=== PATIENT | male | born 1990 | race Caucasian/White ===

== ENCOUNTER 2017-05-01 19:55 | Emergency (ER) | payer OTHER ==
[2017-05-01 20:04] VITALS: TEMP 97.5; O2SAT 98
--- NOTE | 2017-05-01 21:13 | EDPHY ---
H & P Stated Complaint: right calf skin lac HPI/ROS: Chief complaint: Right lower leg laceration History of present illness: This is a 26-year-old male who presents to the emergency department for a right lower leg laceration. Patient states he struck his leg against a metal pipe just prior to arrival. There has been pain and bleeding. It hurts to walk. He denies associated signs or symptoms including no abnormal coolness or paresthesias in the leg. He can still move the leg well. No other injuries are reported. His tetanus is up-to-date. - Personal History Current Tetanus/Diphtheria Vaccine: Unsure Current Tetanus Diphtheria and Acellular Pertussis (TDAP): Unsure - Medical/Surgical History Hx Asthma: No Hx Chronic Respiratory Disease: No Hx Diabetes: No Hx Cardiac Disease: No Hx Renal Disease: No Hx Cirrhosis: No Hx Alcoholism: No Hx HIV/AIDS: No Hx Splenectomy or Spleen Trauma: No Other PMH: ADHD - Social History Smoking Status: Never smoked - Physical Exam Exam: General: Alert, nontoxic Skin: 5 cm laceration to the medial aspect of the distal right lower leg. Exploration does reveal small amount of muscle belly exposed. No foreign bodies appreciated. Musculoskeletal: Patient can move all digits in his right foot. He is moving the ankle in all clemente well. He is moving the knee with flexion extension well. Vascular: DP and PT pulses 2+. Neurologic: Sensation intact in the right leg. Constitutional: Initial Vital Signs Temperature (C) 36.4 C 05/01/17 20:00 Heart Rate 102 H 05/01/17 20:00 Respiratory Rate 18 05/01/17 20:00 Blood Pressure 120/88 H 05/01/17 20:00 O2 Sat (%) 98 05/01/17 20:00 O2 Delivery Mode Room Air Allergies/Adverse Reactions: Penicillins Allergy (Verified 02/14/14 13:43) Home Medications: Medication Instructions Recorded Adderall 5 mg Tablet 05/01/17 Medical Decision Making Procedures: Procedure: Laceration repair. Verbal consent was obtained from the patient. The 5 cm laceration on the right leg was anesthetized in the usual fashion. The wound was irrigated, draped and explored to its base with a gloved finger. There were no deep structures involved. No tendon injury was identified. The wound was repaired with 4 0 Ethilon, 7 simple interrupted sutures. The wound repair was simple. The procedure was performed by myself. ED Course/Re-evaluation: Patient seen under the supervision of my secondary supervising physician Dr. Carlitos Olmstead. Patient presents to the emergency department for a right leg laceration. The leg is neurovascularly intact. He has good musculoskeletal control. The wound has been anesthetized, cleaned, explored, repaired and dressed. He is asked to follow up with orthopedics for recheck. Home care is discussed including wound care. Return precautions are given. Patient voiced understanding and agreement with plan. Differential Diagnosis: Included but not limited to laceration, deep structure injury, foreign body contamination - Data Points Medications Given: Discontinued Medications Hydrocodone Bitart/Acetaminophen ([place] 5/325) 1 tab PO EDNOW ONE Stop: 05/01/17 21:14 Last Admin: 05/01/17 21:21 Dose: 1 tab Ibuprofen (Motrin) 600 mg PO EDNOW ONE Stop: 05/01/17 21:14 Last Admin: 05/01/17 21:21 Dose: 600 mg Departure - Departure Disposition: Home, Routine, Self-Care Clinical Impression: Leg laceration Qualifiers: Encounter type: initial encounter Laterality: right Qualified Code(s): S81.811A - Laceration without foreign body, right lower leg, initial encounter Condition: Good Instructions: Care For Your Stitches (ED), Laceration (ED), Acute Wounds (ED) Additional Instructions: Follow-up with orthopedics for recheck Stitches to be removed in 14 days If symptoms worsen or new symptoms develop return to the emergency room for recheck Referrals: RYANNE SHANKAR [Primary Care Provider] - As per Instructions Royal Brennan MD [Medical Doctor] - As per Instructions
[2017-05-01] MEDS: HYDROCODONE/APAP 5/325 TAB PO ONE (21:21)
[2017-05-01] MEDS: IBUPROFEN 600 MG TAB PO ONE (21:21)
[2017-05-01 21:25] VITALS: BP 118/72; PULSE 97; RESP 16
== END 2017-05-01 21:25 | disposition home or self-care (01) ==
PROC: 0HQKXZZ Repair Right Lower Leg Skin, External Approach (ICD-10-PCS; principal; 2017-05-01)
DX: S81.811A Laceration without foreign body, right lower leg, initial encounter (principal); W22.8XXA Striking against or struck by other objects, initial encounter; Y99.8 Other external cause status